=== PATIENT | male | born 1960 | race Two or more races ===

== ENCOUNTER 2020-08-06 09:09 | Emergency (ER) | payer SELFPAY ==
[~2020-08-06] VITALS: Ht 188 cm; Wt 98.9 kg
[2020-08-06 09:24] VITALS: BP 175/88
[2020-08-06] MEDS: TONO PEN in ED SUPPLY ONICELL 1 EA MC ONE (09:50)
[2020-08-06] MEDS: TETRACAINE HCL 0.5% OPHTALMIC 15 ML BOTTLE OP ONE (09:50)
[2020-08-06] MEDS ORDERED: POLY30DR EACHEYE (09:59)
--- NOTE | 2020-08-06 10:03 | NUR ---
MEAGAN WALDROP (BROTHER) [phone]
== END 2020-08-06 10:08 | disposition home or self-care (01) ==
LOC: ER 09:14
DX: H57.12 Ocular pain, left eye (principal); I10 Essential (primary) hypertension